=== PATIENT | male | born 1960 | race Caucasian/White ===

== ENCOUNTER → 2025-01-24 | Outpatient (REF) | payer OTHER ==
[~2025-01-24] MED LIST: IOPAMIDOL 370 MG/ML 100 ML INFUS..BTL INJ ONE; SODIUM CHLORIDE 0.9% 250ML 250 ML ONE
[2025-01-24 11:34] LABS: EST GLOMERULAR FILTRATION RATE 85.0 ML/MIN (>=60)
== END ==
LOC: CT 10:05
PROVIDERS: ATTEND Family Medicine
DX: R10.9 Unspecified abdominal pain (principal); N20.0 Calculus of kidney; R31.9 Hematuria, unspecified
CPT/HCPCS: 36415; 74178; 82565; 84520; J7050; Q9967